=== PATIENT | female | born 1960 ===

== ENCOUNTER 2018-10-16 06:42 | Day surgery (SDC) | payer OTHER ==
[~2018-10-16 06:42] MED LIST: FORTAMET500 MG; METHOTREXATE2.5 MG; SINGULAIR4 M1; VIT D-3
[2018-10-16] MEDS ORDERED: FLAGYL500MG PO (15:14)
== END 2018-10-16 17:20 | disposition home or self-care (01) ==
LOC: CIR.AMB 06:42
DX: C54.1 Malignant neoplasm of endometrium (principal)

== ENCOUNTER 2018-12-30 07:45 | Inpatient (IN) | payer OTHER ==
[~2018-12-30] VITALS: Ht 157.5 cm; Wt 76.2 kg
[~2018-12-30 07:45] MED LIST changes: +FLAGYL500MG PO
[2018-12-30] MEDS ORDERED: FOLBIC TABLET1 EACH PO (09:48)
[2018-12-30] MEDS ORDERED: NORVASC2.5 M1 PO (09:55)
== END 2019-01-02 09:00 | disposition home or self-care (01) | DRG 735 ==
LOC: CIR.AMB 01-01 06:00 → SURH 01-01 06:00 → O/R 01-01 06:00 → OB/GYN 01-01 06:06 → SURH 01-01 06:06 → O/R 01-01 06:06 → SURH 01-01 07:45 → EDSTATUS 01-01 07:45 → SURH 01-01 13:45 → OB/GYN 01-01 13:55 → O/R 01-01 13:55 → CIR.AMB 01-02 09:00 → O/R 01-02 09:00 → OB/GYN 01-02 15:08 → O/R 01-02 15:08
PROVIDERS: ADMIT Obstetrics & Gynecology Gynecologic Oncology
PROC: 07TC4ZZ Resection of Pelvis Lymphatic, Percutaneous Endoscopic Approach (ICD-10-PCS; 2019-01-01)
PROC: 0UT74ZZ Resection of Bilateral Fallopian Tubes, Percutaneous Endoscopic Approach (ICD-10-PCS; 2019-01-01)
PROC: 0UT24ZZ Resection of Bilateral Ovaries, Percutaneous Endoscopic Approach (ICD-10-PCS; 2019-01-01)
PROC: 0UT94ZZ Resection of Uterus, Percutaneous Endoscopic Approach (ICD-10-PCS; principal; 2019-01-01 13:45)
DX: C54.1 Malignant neoplasm of endometrium (principal)